=== PATIENT | male | born 1960 | race Caucasian/White ===

== ENCOUNTER 2020-03-28 22:50 | Emergency (ER) | payer BC ==
[~2020-03-28] VITALS: Ht 170.2 cm; Wt 87.1 kg
[2020-03-28 23:05] VITALS: BP 140/90
--- NOTE | 2020-03-28 23:06 | NUR ---
ED Nurse Note: WALKED IN TO ed c/o ingrown hair/abscess on left groin region onset 1 wk ago. pt states he was seen by pcp yesterday and was px clindamycin 300mg cap tid. vss, nad, aaox4, ambulatory, on gown, ermd at bedside
--- NOTE | 2020-03-28 23:16 | NUR ---
ED Nurse Note: ERMD at bedside
--- NOTE | 2020-03-28 23:20 | NUR ---
ED Nurse Note: all medications administered, pt tolerated well no ss of distress noted. will continue to monitor.
[2020-03-28] MEDS ORDERED: IBUPROFEN600 M1 ORAL (23:23)
[2020-03-28 23:26] VITALS: BP 138/86
--- NOTE | 2020-03-28 23:26 | NUR ---
ER DISCHARGE NOTE: Patient is cleared to be discharged home per ERMD, pt is aox4, 98% on room air, with stable vital signs. pt was given dc and prescription instructions, pt was able to verbalize understanding, pt id band removed. pt is able to ambulate with steady gait. pt took all belongings.
--- NOTE | 2020-03-28 23:30 | Emergency Room Report ---
History of Present Illness General Chief Complaint: Skin Rash/Abscess Source: Patient Present Illness HPI Disclaimer: Please note that this report is being documented using [employer] technology. This can lead to erroneous entry secondary to incorrect interpretation by the dictating instrument. HPI: 59-year-old male presents with abscess to left groin. Patient states he noted an ingrown hair to the area recently over the past couple of days was seen by his primary doctor who started him on p.o. clindamycin. He started that today however he has continued to have pain and increased swelling to the area. Allergies: Coded Allergies: CEPHALEXIN (Verified Allergy, Unknown, 03/28/20) COVID-19 Screening Contact w/high risk pt: No Experienced COVID-19 symptoms?: No COVID-19 Testing performed [employer]: No Patient History Reviewed Nursing Documentation: PMH: Agreed; PSxH: Agreed Nursing Documentation-PMH Hx Cardiac Problems: Yes - stent Review of Systems All Other Systems: negative except mentioned in HPI Physical Exam Vital Signs Date Time Temp Pulse Resp B/P (MAP) Pulse Ox O2 Delivery O2 Flow Rate FiO2 03/28/20 22:58 97.9 78 18 140/90 (107) 98 Room Air Sp02 EP Interpretation: reviewed, normal General Appearance: well appearing, no apparent distress Head: normocephalic, atraumatic Eyes: bilateral eye PERRL, bilateral eye EOMI ENT: hearing grossly normal, moist mucus membranes Neck: full range of motion, supple Respiratory: lungs clear, normal breath sounds, no rhonchi, no respiratory distress, no retraction, no wheezing Cardiovascular #1: normal peripheral pulses, regular rate, rhythm, no murmur Gastrointestinal: non tender, soft, non-distended, no guarding Neurologic: alert, oriented x3, no focal defects Skin: normal color, warm/dry, other - Abscess noted to left groin approximately 2 x 2 centimeter area of induration. Procedures Incision and Drainage Incision and Drainage : Consent: Verbal Blade Size: 11 I & D Procedure: betadine prep Wound Location: other - Groin Wound Explored: clean Anesthesia: 1% Lidocaine Patient Tolerated: Well Complications: None Medical Decision Making Diagnostic Impression: Primary Impression: Abscess ER Course MDM: Differential diagnosis included but not limited to abscess, cellulitis, infected cyst to name a few Clinical course-abscess drained by me. Patient already started on oral antibiotics by his primary care doctor. Will have patient continue his oral antibiotics as previously prescribed. Patient stable for discharge. We will continue outpatient follow-up. Return precautions were given. Last Vital Signs Date Time Temp Pulse Resp B/P (MAP) Pulse Ox O2 Delivery O2 Flow Rate FiO2 03/28/20 23:05 97.9 18 140/90 98 Room Air 03/28/20 22:58 78 Disposition: HOME, SELF-CARE Condition: Improved Scripts Ibuprofen* (MOTRIN*) 600 Mg Tablet 600 MG ORAL Q6H PRN for FOR PAIN, #20 TAB 0 Refills Prov: Bernard Lemus M.D. 03/28/20 Patient Instructions: Abscess Additional Instructions: Please continue your p.o. antibiotics as prescribed by your primary physician. Patient is instructed to follow-up with her primary care doctor, primary care clinic or critical access hospital clinic in 1 to 2 days. Patient instructed to return for any worsening symptoms or concerns. Bernard Lemus M.D. Mar 28, 2020 23:30
== END 2020-03-28 23:26 | disposition home or self-care (01) ==
LOC: EMR 23:15
DX: L02.214 Cutaneous abscess of groin (principal); Z88.1 Allergy status to other antibiotic agents; Z95.5 Presence of coronary angioplasty implant and graft
CPT/HCPCS: 99283